=== PATIENT | male | born 1970 | race Caucasian/White ===

== ENCOUNTER 2024-08-30 07:57 | Emergency (ER) | payer BC, SELFPAY ==
[2024-08-30 07:59] VITALS: BP 141/88
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
[2024-08-30 09:03] VITALS: BP 141/87
== END 2024-08-30 09:20 | disposition home or self-care (01) ==
LOC: EMR 07:57
PROVIDERS: EMERGENCY PHYSICIAN Emergency Medicine; FAMILY PHYSICIAN Family Medicine
DX: S46.912A Strain of unspecified muscle, fascia and tendon at shoulder and upper arm level, left arm, initial encounter (principal); W10.9XXA Fall (on) (from) unspecified stairs and steps, initial encounter; G47.30 Sleep apnea, unspecified
CPT/HCPCS: 99283; 73030

== ENCOUNTER → 2024-09-14 20:27 | Outpatient (REF) | payer BC, SELFPAY | LOC: MRI 20:27 | PROVIDERS: ATTENDING PHYSICIAN Physical Medicine & Rehabilitation; FAMILY PHYSICIAN Family Medicine | DX: M25.512 Pain in left shoulder (principal) | CPT/HCPCS: 73221 ==